=== PATIENT | female | born 1975 | race Caucasian/White ===

== ENCOUNTER → 2018-03-06 14:02 | Outpatient (CLI) | payer OTHER, SELFPAY ==
[2018-03-06 15:46] LABS: TSH w/ Reflex to FT4 2.18 uIU/mL (0.47-4.68)
== END ==
PROVIDERS: Family Provider Family Medicine; PCP Family Medicine; Visit Provider Family Medicine
DX: E03.9 Hypothyroidism, unspecified (principal)
CPT/HCPCS: 36415; 84443

== ENCOUNTER → 2018-03-18 10:30 | Outpatient (CLI) | payer OTHER, SELFPAY ==
--- NOTE | 2018-03-18 | DI.MG.S_ITS ---
BILATERAL DIGITAL SCREENING MAMMOGRAM 3D/2D WITH CAD: 03/18/2018 CLINICAL: Routine screening. Family history of breast cancer. Comparison is made to exams dated: 12/22/2016 mammogram, 12/10/2015 mammogram, and 12/22/2015 mammogram - [facility]. The tissue of both breasts is heterogeneously dense. This may lower the sensitivity of mammography. Current study was also evaluated with a Computer Aided Detection (CAD) system. No significant masses, calcifications, or other findings are seen in either breast. There has been no significant interval change. IMPRESSION: NEGATIVE There is no mammographic evidence of malignancy. A 1 year screening mammogram is recommended. This exam was interpreted at Station ID: [id number]. NOTE: For mammograms, a report in lay terms will be sent to the patient. Approximately 15% of breast malignancies will not be visualized mammographically. In the management of a palpable breast mass, a negative mammogram must not discourage biopsy of a clinically suspicious lesion. Electronically Signed By: Christine montalvo/bret:03/18/2018 11:18:59 letter sent: Normal Exam ACR BI-RADS Category 1: Negative 3341F
== END ==
PROVIDERS: Family Provider Family Medicine; PCP Family Medicine; Visit Provider Family Medicine
DX: Z12.31 Encounter for screening mammogram for malignant neoplasm of breast (principal); Z80.3 Family history of malignant neoplasm of breast
CPT/HCPCS: 77063; 77067

== ENCOUNTER → 2019-01-16 09:48 | Outpatient (CLI) | payer OTHER, SELFPAY ==
[2019-01-16 11:24] LABS: Add Manual Diff / Slide Review NO; Basophils Absolute Auto 0 /uL (0-100); Basophils Percent Auto 0.8 % (0-2); Eosinophils Absolute Auto 200 /uL (0-450); Eosinophils Percent Auto 2.7 % (2-4); Hematocrit 42.3 % (36-46); Hemoglobin 14.3 g/dL (12.0-16.0); Lymphocytes Absolute Auto 1400 /uL (1100-4500); Lymphocytes Percent Auto 23.6 % (25-40); Mean Corpuscular HGB Conc 33.9 % (30-36); Mean Corpuscular Hemoglobin 30.2 PG (26-34); Mean Corpuscular Volume 89.2 fL (80-100); Monocytes Absolute Auto 600 /uL (0-900); Monocytes Percent Auto 9.4 % (3-14); Neutrophils Absolute Auto 3800 /uL (1500-7000); Neutrophils Percent Auto 63.5 % (50-75); Platelet Count 319 X10^3/uL (150-400); Red Blood Cell Count 4.74 X10^6/uL (4.0-5.2); Red Cell Distribution Width 12.7 % (11.6-14.8); White Blood Cell Count 5.9 X10^3/uL (4.5-11.0)
[2019-01-16 11:28] LABS: Alanine Aminotransferase 20 IU/L (9-52); Albumin 4.3 g/dL (3.5-5.0); Albumin Globulin Ratio 1.4 (1.0-2.8); Alkaline Phosphatase 47 U/L (38-126); Aspartate Aminotransferase 23 IU/L (14-36); Bilirubin Total 0.4 mg/dL (0.2-1.3); Blood Urea Nitrogen 15 mg/dL (7-17); Calcium 9.2 mg/dL (8.4-10.2); Carbon Dioxide 25 mmol/L (22-32); Chloride 104 mmol/L (98-107); Estimated Glomerular Filt Rate > 60.0 mL/min (>60); Globulin 3.1 g/dL (1.7-4.1); Glucose 123 mg/dL (70-100); HEMOLYSIS 16 (0-50); Potassium 4.3 mmol/L (3.4-5.1); Sodium 138 mmol/L (137-145); Total Protein 7.4 g/dL (6.3-8.2)
[2019-01-16 11:55] LABS: Follicle Stimulating Hormone 2.05 mIU/mL
[2019-01-16 12:08] LABS: TSH w/ Reflex to FT4 2.57 uIU/mL (0.47-4.68)
== END ==
PROVIDERS: PCP Family Medicine; Visit Provider Family Medicine
DX: N95.1 Menopausal and female climacteric states (principal); R53.83 Other fatigue
CPT/HCPCS: 36415; 80053; 83001; 84443; 85025

== ENCOUNTER → 2019-04-01 11:20 | Outpatient (CLI) | payer OTHER, SELFPAY ==
--- NOTE | 2019-04-01 11:22 | DI.MG.S_ITS ---
BILATERAL DIGITAL SCREENING MAMMOGRAM 3D/2D WITH CAD: 04/01/2019 CLINICAL: Routine screening. Family history of breast cancer. Comparison is made to exams dated: 03/18/2018 mammogram, 12/22/2016 mammogram, and 12/22/2015 mammogram - [facility]. The tissue of both breasts is heterogeneously dense. This may lower the sensitivity of mammography. Current study was also evaluated with a Computer Aided Detection (CAD) system. No significant masses, calcifications, or other findings are seen in either breast. There has been no significant interval change. IMPRESSION: NEGATIVE There is no mammographic evidence of malignancy. A 1 year screening mammogram is recommended. This exam was interpreted at Station ID: [id number]. NOTE: For mammograms, a report in lay terms will be sent to the patient. Approximately 15% of breast malignancies will not be visualized mammographically. In the management of a palpable breast mass, a negative mammogram must not discourage biopsy of a clinically suspicious lesion. Electronically Signed By: Alise wolfe/bret:04/01/2019 16:13:23 letter sent: Normal Exam ACR BI-RADS Category 1: Negative 3341F
== END ==
PROVIDERS: PCP Family Medicine; Visit Provider Family Medicine
DX: Z12.31 Encounter for screening mammogram for malignant neoplasm of breast (principal); Z80.3 Family history of malignant neoplasm of breast
CPT/HCPCS: 77063; 77067

== ENCOUNTER → 2020-04-05 08:15 | Outpatient (CLI) | payer OTHER, SELFPAY ==
--- NOTE | 2020-04-05 08:56 | DI.MG.S_ITS ---
BILATERAL DIGITAL SCREENING MAMMOGRAM 3D/2D WITH CAD: 04/05/2020 CLINICAL: Routine screening. Family history of breast cancer. Comparison is made to exams dated: 04/01/2019 mammogram, 03/18/2018 mammogram, and 12/22/2016 mammogram - [facility]. The tissue of both breasts is heterogeneously dense. This may lower the sensitivity of mammography. Current study was also evaluated with a Computer Aided Detection (CAD) system. No significant masses, calcifications, or other findings are seen in either breast. There has been no significant interval change. IMPRESSION: NEGATIVE There is no mammographic evidence of malignancy. A 1 year screening mammogram is recommended. This exam was interpreted at Station ID: [id number]. NOTE: For mammograms, a report in lay terms will be sent to the patient. Approximately 15% of breast malignancies will not be visualized mammographically. In the management of a palpable breast mass, a negative mammogram must not discourage biopsy of a clinically suspicious lesion. Electronically Signed By: Ariel khalil/bret:04/05/2020 09:20:20 letter sent: Normal Exam ACR BI-RADS Category 1: Negative 3341F
== END ==
PROVIDERS: PCP Family Medicine; Referring Provider Family Medicine; Visit Provider Family Medicine
DX: Z12.31 Encounter for screening mammogram for malignant neoplasm of breast (principal)
CPT/HCPCS: 77063; 77067

== ENCOUNTER → 2020-04-13 07:06 | Outpatient (CLI) | payer OTHER, SELFPAY ==
[2020-04-13 08:16] LABS: Alanine Aminotransferase 21 IU/L (<35); Albumin 4.1 g/dL (3.5-5.0); Albumin Globulin Ratio 1.4 (1.0-2.8); Alkaline Phosphatase 47 U/L (38-126); Aspartate Aminotransferase 29 IU/L (14-36); BUN Creatinine Ratio 18.8 (6-22); Bilirubin Total 0.6 mg/dL (0.2-1.3); Blood Urea Nitrogen 13 mg/dL (7-17); Calcium 8.6 mg/dL (8.4-10.2); Carbon Dioxide 28 mmol/L (22-32); Chloride 105 mmol/L (98-107); Estimated Glomerular Filt Rate > 60.0 mL/min (>60); Globulin 2.9 g/dL (1.7-4.1); Glucose 97 mg/dL (70-100); HEMOLYSIS < 15 (0-50); Potassium 4.4 mmol/L (3.4-5.1); Sodium 136 mmol/L (137-145)
[2020-04-13 08:47] LABS: TSH w/ Reflex to FT4 5.93 uIU/mL (0.47-4.68)
[2020-04-13 09:16] LABS: Free T4, Direct Thyroxine 0.94 ng/dL (0.78-2.19)
== END ==
PROVIDERS: PCP Family Medicine; Referring Provider Family Medicine; Visit Provider Family Medicine
DX: E03.9 Hypothyroidism, unspecified (principal); R73.9 Hyperglycemia, unspecified
CPT/HCPCS: 36415; 80053; 84439; 84443

== ENCOUNTER → 2020-06-24 09:08 | Outpatient (CLI) | payer OTHER, SELFPAY ==
[2020-06-24 10:29] LABS: Thyroid Stimulating Hormone 2.57 uIU/mL (0.47-4.68)
[2020-06-25 11:36] LABS: SARS-CoV19- IgM Negative (Negative)
[2020-06-29 10:01] LABS: SARS CoV19 IgG Negative
== END ==
PROVIDERS: PCP Family Medicine; Referring Provider Family Medicine; Visit Provider Family Medicine
DX: R06.02 Shortness of breath (principal); E03.9 Hypothyroidism, unspecified; Z20.822 Contact with and (suspected) exposure to COVID-19
CPT/HCPCS: 36415; 84443; 86769

== ENCOUNTER → 2021-04-15 08:26 | Outpatient (CLI) | payer BC, SELFPAY ==
--- NOTE | 2021-04-15 | DI.MG.S_ITS ---
BILATERAL DIGITAL SCREENING MAMMOGRAM 3D/2D WITH CAD: 04/15/2021 CLINICAL: Routine screening. Comparison is made to exams dated: 04/05/2020 mammogram, 04/01/2019 mammogram, and 03/18/2018 mammogram - [facility]. The tissue of both breasts is heterogeneously dense. This may lower the sensitivity of mammography. Current study was also evaluated with a Computer Aided Detection (CAD) system. No significant masses, calcifications, or other findings are seen in either breast. There has been no significant interval change. IMPRESSION: NEGATIVE There is no mammographic evidence of malignancy. A 1 year screening mammogram is recommended. This exam was interpreted at Station ID: [id number]. NOTE: For mammograms, a report in lay terms will be sent to the patient. Approximately 15% of breast malignancies will not be visualized mammographically. In the management of a palpable breast mass, a negative mammogram must not discourage biopsy of a clinically suspicious lesion. Electronically Signed By: Alise wolfe/bret:04/15/2021 15:09:26 letter sent: Normal Exam ACR BI-RADS Category 1: Negative 3341F
== END ==
PROVIDERS: PCP Family Medicine; Referring Provider Family Medicine; Visit Provider Family Medicine
DX: Z12.31 Encounter for screening mammogram for malignant neoplasm of breast (principal)
CPT/HCPCS: 77063; 77067

== ENCOUNTER → 2021-08-01 09:05 | Outpatient (CLI) | payer BC, SELFPAY ==
[2021-08-01 09:58] LABS: Alanine Aminotransferase 13 IU/L (<35); Albumin 4.7 g/dL (3.5-5.0); Albumin Globulin Ratio 1.5 (1.0-2.8); Alkaline Phosphatase 45 U/L (38-126); Aspartate Aminotransferase 23 IU/L (14-36); BUN Creatinine Ratio 21.1 (6-22); Bilirubin Total 0.6 mg/dL (0.2-1.3); Blood Urea Nitrogen 16 mg/dL (7-17); Calcium 9.1 mg/dL (8.4-10.2); Carbon Dioxide 28 mmol/L (22-32); Chloride 105 mmol/L (98-107); Cholesterol 192 mg/dL (140-199); Estimated Glomerular Filt Rate > 60.0 mL/min (>60); Globulin 3.2 g/dL (1.7-4.1); Glucose 102 mg/dL (70-100); HDL Cholesterol 57 mg/dL (40-60); HEMOLYSIS < 15 (0-50); LDL Cholesterol Calculated 123 mg/dL (<100); Potassium 4.7 mmol/L (3.4-5.1); Sodium 138 mmol/L (137-145); Total Protein 7.9 g/dL (6.3-8.2); Triglycerides 60 mg/dL (35-150)
[2021-08-01 10:12] LABS: Erythrocyte Sedimentation Rate 6 MM/HR (0-20)
[2021-08-01 10:31] LABS: Vitamin D 25 Hydroxy (D3) 25.8 ng/mL (30.0-100.0)
[2021-08-01 10:48] LABS: TSH w/ Reflex to FT4 3.38 uIU/mL (0.47-4.68)
== END ==
PROVIDERS: PCP Family Medicine; Referring Provider Family Medicine; Visit Provider Family Medicine
DX: M79.10 Myalgia, unspecified site (principal); Z13.220 Encounter for screening for lipoid disorders; E03.9 Hypothyroidism, unspecified; E55.9 Vitamin D deficiency, unspecified
CPT/HCPCS: 36415; 80053; 80061; 82306; 84443; 85651

== ENCOUNTER 2021-09-26 09:00 | Outpatient (RCR) | payer BC, SELFPAY ==
--- NOTE | 2021-08-22 15:50 | PT.OIE ---
Current Diagnoses Pain in right knee (08/22/21) Radiculopathy, lumbar region (08/22/21) Past Medical History (Last Reviewed 08/01/21 @ 09:35 by Joelle Keita DO) Abnormal Pap smear of cervix (~1998) History of elbow surgery History of shoulder surgery Hypothyroidism S/P tonsillectomy Vaginal delivery Past Surgical History (Last Reviewed 08/01/21 @ 09:35 by Joelle Keita DO) Anesthesia History of elbow surgery History of shoulder surgery S/P tonsillectomy Visit Care Team Role Provider Type Joelle Keita DO Attending Provider Physician Family Provider Primary Care Provider Referring Provider Specialty: Family Practice Address: [address] [place] [address], [facility] Email: [email or web address] Physical Therapy Initial Evaluation PT-OP-A Visit Information Start: 08/22/21 09:46 Freq: Status: Active Protocol: Document 08/22/21 09:45 AMB (Rec: 08/23/21 09:34 AMB [id number]) Out-Patient Physical Therapy Visit Information Visit Information Visit Type Initial Evaluation Visit Start Time 09:45 Visit Stop Time 10:30 Total Visit Minutes 45 Visit Number 1 PT-OP-B Current Condition Start: 08/22/21 09:46 Freq: Status: Active Protocol: Document 08/22/21 09:46 AMB (Rec: 08/22/21 10:00 AMB [id number]) Current Condition History of Current Condition Onset Date June 2021 Current Complaints R knee/ proximal History of Current Condition The end of June hiking. R knee hyperextended while hiking- bouldering. Lots of walking afterwards and the knee has been sore ever since. Twisting the knee hurts. Feels like the knee is swollen . Was previously taking ibuprofen. Did go mountain biking yesterday and was sore but is ok. Usually walks 2 miles up hill and downhill, but hasn't been doing that as much. Does have a little bit of back history but feeling better since seeing the chiropractor beginning of June- was having bilateral pain going down the legs when waking up but that has also recently resolved. Stairs were a problem but now that is feeling better. Treatment Goals Patient/Caregiver Goals Be able to walk on uneven ground/up down hills without knee pain, be able to bend knee fully Personal Factors Other Personal Factors That May Effect hypothyroid, history of Therapy/Recovery bilateral leg pain associated with back pain that has seemingly resolved. PT-OP-C Subjective Start: 08/22/21 09:46 Freq: Status: Active Protocol: Document 08/22/21 09:45 AMB (Rec: 08/23/21 09:34 AMB [id number]) Patient Questionnaires Oswestry Low Back Index Oswestry Score 10 Oswestry Impairment 1 to 19% Impaired (Score 1-19) PT-OP-J Posture/Palpation/Skin Start: 08/22/21 09:46 Freq: Status: Active Protocol: Document 08/22/21 09:45 AMB (Rec: 08/23/21 09:44 AMB [id number]) Skin Assessment Circumference Measurement 1 Location L knee Measurement (Centimeters) 130 knees Location R knee Measurement (Centimeters) 115 PT-OP-K Range of Motion Start: 08/22/21 09:46 Freq: Status: Active Protocol: Document 08/22/21 09:45 AMB (Rec: 08/23/21 09:34 AMB [id number]) Knee Goniometric Range of Motion Knee Right Flexion Active (degrees) 115 Extension Active (degrees) 7 Left Flexion Active (degrees) 130 Extension Active (degrees) 5 PT-OP-L Special Tests Start: 08/22/21 09:46 Freq: Status: Active Protocol: Document 08/22/21 09:45 AMB (Rec: 08/23/21 09:34 AMB [id number]) Special Tests Knee Special Tests Allen Test Test Results - Patellar Grind Test Test Results - Anterior Draw Test Results - Posterior Draw Test Results - PT-OP-M Strength Start: 08/22/21 09:46 Freq: Status: Active Protocol: Document 08/22/21 09:45 AMB (Rec: 08/23/21 09:34 AMB [id number]) Knee Strength Knee Manual Muscle Testing Right Flexion (S2) 4+ Good+ Extension (L3) 4+ Good+ Left Flexion (S2) 5 Normal Extension (L3) 5 Normal Ankle/Foot Strength Ankle and Foot Manual Muscle Testing Right Dorsiflexion (L4) 5 Normal Left Dorsiflexion (L4) 5 Normal PT-OP-Q Treatments Start: 08/22/21 09:46 Freq: Status: Active Protocol: Document 08/22/21 09:45 AMB (Rec: 08/23/21 09:34 AMB [id number]) Therapeutic Exercises Supine Exercises SLR Reps/Minutes 10 Other Exercises gustavo pose Reps/Minutes 30x2 PT-OP-T Assessment and Plan Start: 08/22/21 09:46 Freq: Status: Active Protocol: Document 08/22/21 09:45 AMB (Rec: 08/23/21 13:01 AMB [id number]) Physical Therapy Assessment Rehab Potential Rehabilitation Potential Good Evaluation Complexity Number of Personal Factors/Comorbidities 1-2 Number of Body Systems Impaired 4 or More Clinical Presentation at Evaluation Evolving Impairments Impairments Edema,Pain,ROM,Strength Goals Two Impairment pain Short Term Goal (STG) Carlene will walk 3 miles with elevation gain without LE pain. STG Duration 4 weeks Fdc Goal (LTG) Carlene will perform a full squat with good body mechanics without knee pain. LTG Duration 8 weeks One Impairment ROM Short Term Goal (STG) Carlene will increase her knee flexion to 130 degrees. STG Duration 4 weeks Assessment Summary Assessment Carlene attends physical therapy concerned about her right knee which she injured hiking in June. She does report history of back pain and bilateral leg sx, which she states were resolved with career specialist prior to her hiking injury. She did see her physician for her knee recently who felt it was a symptom of radicular pain from her back. At PT eval, however her knee is swollen and has quite restricted ROM into flexion. Testing was negative for ACL, PCL meniscus involvement and pain/swelling is mostly located superior and medial to the patella. Carlene will benefit from physical therapy to improve her range of motion, hip and core stability, and improve her gait/mobility so she can return to exercise without pain. Physical Therapy Plan Frequency and Duration Frequency of Treatment 2x/Week Duration of Treatment 8 weeks Plan of Care Start Date 08/22/21 Plan of Care End Date 10/17/21 Therapeutic Interventions Therapeutic Interventions Gait Training,Joint Mobilizations,Manual Therapy, Neuromuscular Re-education, Therapeutic Activities, Therapeutic Exercises Modalities Cold Pack/Ice Massage,Electric Stimulation,Hot Packs Next Visit Focus/Plan Next Note Type Treatment Note Next Visit Plan follow up on preliminary HEP: gustavo pose, SLR,
--- NOTE | 2021-08-22 15:51 | PT.OPPOC ---
Physical, Occupational & Speech Therapy At [facility] Current Diagnoses Pain in right knee (08/22/21) Radiculopathy, lumbar region (08/22/21) Visit Care Team Role Provider Type Joelle Keita DO Attending Provider Physician Family Provider Primary Care Provider Referring Provider Specialty: Family Practice Address: [address] [place] [address], [place], [place], [facility] Email: [email or web address] Plan Of Care PT-OP-T Assessment and Plan Start: 08/22/21 09:46 Freq: Status: Active Protocol: Document 08/22/21 09:45 AMB (Rec: 08/23/21 13:01 AMB [id number]) Physical Therapy Assessment Rehab Potential Rehabilitation Potential Good Evaluation Complexity Number of Personal Factors/Comorbidities 1-2 Number of Body Systems Impaired 4 or More Clinical Presentation at Evaluation Evolving Impairments Impairments Edema,Pain,ROM,Strength Goals Two Impairment pain Short Term Goal (STG) Carlene will walk 3 miles with elevation gain without LE pain. STG Duration 4 weeks Senior Care Goal (LTG) Carlene will perform a full squat with good body mechanics without knee pain. LTG Duration 8 weeks One Impairment ROM Short Term Goal (STG) Carlene will increase her knee flexion to 130 degrees. STG Duration 4 weeks Assessment Summary Assessment Carlene attends physical therapy concerned about her right knee which she injured hiking in June. She does report history of back pain and bilateral leg sx, which she states were resolved with skin care technician prior to her hiking injury. She did see her physician for her knee recently who felt it was a symptom of radicular pain from her back. At PT eval, however her knee is swollen and has quite restricted ROM into flexion. Testing was negative for ACL, PCL meniscus involvement and pain/swelling is mostly located superior and medial to the patella. Carlene will benefit from physical therapy to improve her range of motion, hip and core stability, and improve her gait/mobility so she can return to exercise without pain. Physical Therapy Plan Frequency and Duration Frequency of Treatment 2x/Week Duration of Treatment 8 weeks Plan of Care Start Date 08/22/21 Plan of Care End Date 10/17/21 Therapeutic Interventions Therapeutic Interventions Gait Training,Joint Mobilizations,Manual Therapy, Neuromuscular Re-education, Therapeutic Activities, Therapeutic Exercises Modalities Cold Pack/Ice Massage,Electric Stimulation,Hot Packs Next Visit Focus/Plan Next Note Type Treatment Note Next Visit Plan follow up on preliminary HEP: gustavo pose, LEBRONR, Plan of Care Dates Plan of Care Start Date 08/22/21 Plan of Care End Date 10/17/21 Electronically Signed by: Rima Treadwell, PT 08/23/21 [id number] Please Sign and Return: I have reviewed this Plan of Care and certify that the skilled therapy services above are required to meet the patient?s needs. Physician Signature Date Printed Name and Credentials Clinical Instructor Signature Printed Name and Credentials
--- NOTE | 2021-08-24 10:55 | PT.OTN ---
Current Diagnoses Pain in right knee (08/24/21) Radiculopathy, lumbar region (08/24/21) Physical Therapy Treatment Note PT-OP-A Visit Information Start: 08/22/21 09:46 Freq: Status: Active Protocol: Document 08/24/21 09:48 AMB (Rec: 08/24/21 10:49 AMB [id number]) Out-Patient Physical Therapy Visit Information Visit Information Visit Type Treatment Note Visit Start Time 09:45 Visit Stop Time 10:30 Total Visit Minutes 45 Visit Number 2 PT-OP-B Current Condition Start: 08/22/21 09:46 Freq: Status: Active Protocol: Document 08/22/21 09:46 AMB (Rec: 08/22/21 10:00 AMB [id number]) Current Condition History of Current Condition Onset Date June 2021 Current Complaints R knee/ proximal History of Current Condition The end of June hiking. R knee hyperextended while hiking- bouldering. Lots of walking afterwards and the knee has been sore ever since. Twisting the knee hurts. Feels like the knee is swollen . Was previously taking ibuprofen. Did go mountain biking yesterday and was sore but is ok. Usually walks 2 miles up hill and downhill, but hasn't been doing that as much. Does have a little bit of back history but feeling better since seeing the chiropractor beginning of June- was having bilateral pain going down the legs when waking up but that has also recently resolved. Stairs were a problem but now that is feeling better. Treatment Goals Patient/Caregiver Goals Be able to walk on uneven ground/up down hills without knee pain, be able to bend knee fully Personal Factors Other Personal Factors That May Effect hypothyroid, history of Therapy/Recovery bilateral leg pain associated with back pain that has seemingly resolved. PT-OP-C Subjective Start: 08/22/21 09:46 Freq: Status: Active Protocol: Document 08/24/21 09:48 AMB (Rec: 08/24/21 10:49 AMB [id number]) OP-PT Subjective Patient Comments Patient Comments Pt reports increased pain in the evening after walking 2 miles with hills, felt ok when walking though. PT-OP-J Posture/Palpation/Skin Start: 08/22/21 09:46 Freq: Status: Active Protocol: Document 08/22/21 09:45 AMB (Rec: 08/23/21 09:44 AMB [id number]) Skin Assessment Circumference Measurement 1 Location L knee Measurement (Centimeters) 130 knees Location R knee Measurement (Centimeters) 115 PT-OP-K Range of Motion Start: 08/22/21 09:46 Freq: Status: Active Protocol: Document 08/22/21 09:45 AMB (Rec: 08/23/21 09:34 AMB [id number]) Knee Goniometric Range of Motion Knee Right Flexion Active (degrees) 115 Extension Active (degrees) 7 Left Flexion Active (degrees) 130 Extension Active (degrees) 5 PT-OP-L Special Tests Start: 08/22/21 09:46 Freq: Status: Active Protocol: Document 08/22/21 09:45 AMB (Rec: 08/23/21 09:34 AMB [id number]) Special Tests Knee Special Tests Allen Test Test Results - Patellar Grind Test Test Results - Anterior Draw Test Results - Posterior Draw Test Results - PT-OP-M Strength Start: 08/22/21 09:46 Freq: Status: Active Protocol: Document 08/22/21 09:45 AMB (Rec: 08/23/21 09:34 AMB [id number]) Knee Strength Knee Manual Muscle Testing Right Flexion (S2) 4+ Good+ Extension (L3) 4+ Good+ Left Flexion (S2) 5 Normal Extension (L3) 5 Normal Ankle/Foot Strength Ankle and Foot Manual Muscle Testing Right Dorsiflexion (L4) 5 Normal Left Dorsiflexion (L4) 5 Normal PT-OP-Q Treatments Start: 08/22/21 09:46 Freq: Status: Active Protocol: Document 08/24/21 09:48 AMB (Rec: 08/24/21 10:49 AMB [id number]) Cardio Equipment Recumbent Bicycle Duration (Minutes) 5 Resistance 4 Seat Position 6 Gym Equipment Shuttle Recovery Bilateral Squats Resistance 50 Shuttle Recovery Platform Stable Reps/Time 3x10 Therapeutic Exercises Supine Exercises hamstring stretches Reps/Minutes 10 SLR Reps/Minutes 10 Manual Therapy Treatment Soft Tissue Mobilization 1 Body Location superior quad Mobilization Type Myofascial Release Intensity/Depth Moderate Body Position Hooklying Joint Mobilizations 1 Joint tibiofemoral Direction PA Grade III Body Position Hooklying Comments into flexion PT-OP-T Assessment and Plan Start: 08/22/21 09:46 Freq: Status: Active Protocol: Document 08/24/21 09:48 JUANIS (Rec: 08/24/21 10:49 [facility] [id number]) Physical Therapy Assessment Goals Two Impairment pain Short Term Goal (STG) Carlene will walk 3 miles with elevation gain without LE pain. STG Duration 4 weeks Client Resolution Specialist Goal (LTG) Carlene will perform a full squat with good body mechanics without knee pain. LTG Duration 8 weeks One Impairment ROM Short Term Goal (STG) Carlene will increase her knee flexion to 130 degrees. STG Duration 4 weeks Assessment Summary Assessment Carlene tolerated biking and shuttle recovery well. Got up to 130 degrees of flexion today, significant improvement since eval, but will need to strengthen extensively to work up to backpacking trip in November.
--- NOTE | 2021-08-29 15:48 | PT.OTN ---
Current Diagnoses Pain in right knee (08/29/21) Radiculopathy, lumbar region (08/29/21) Physical Therapy Treatment Note PT-OP-A Visit Information Start: 08/22/21 09:46 Freq: Status: Active Protocol: Document 08/29/21 09:00 AMB (Rec: 08/29/21 09:44 AMB [id number]) Out-Patient Physical Therapy Visit Information Visit Information Visit Type Treatment Note Visit Start Time 09:00 Visit Stop Time 09:40 Total Visit Minutes 40 Visit Number 3 PT-OP-B Current Condition Start: 08/22/21 09:46 Freq: Status: Active Protocol: Document 08/22/21 09:46 AMB (Rec: 08/22/21 10:00 AMB [id number]) Current Condition History of Current Condition Onset Date June 2021 Current Complaints R knee/ proximal History of Current Condition The end of June hiking. R knee hyperextended while hiking- bouldering. Lots of walking afterwards and the knee has been sore ever since. Twisting the knee hurts. Feels like the knee is swollen . Was previously taking ibuprofen. Did go mountain biking yesterday and was sore but is ok. Usually walks 2 miles up hill and downhill, but hasn't been doing that as much. Does have a little bit of back history but feeling better since seeing the chiropractor beginning of June- was having bilateral pain going down the legs when waking up but that has also recently resolved. Stairs were a problem but now that is feeling better. Treatment Goals Patient/Caregiver Goals Be able to walk on uneven ground/up down hills without knee pain, be able to bend knee fully Personal Factors Other Personal Factors That May Effect hypothyroid, history of Therapy/Recovery bilateral leg pain associated with back pain that has seemingly resolved. PT-OP-C Subjective Start: 08/22/21 09:46 Freq: Status: Active Protocol: Document 08/29/21 09:00 AMB (Rec: 08/29/21 15:39 AMB [id number]) OP-PT Subjective Patient Comments Patient Comments Pt went on a bike ride on Sunday and had to walk her bike a bit and was a bit sore due to that. PT-OP-J Posture/Palpation/Skin Start: 08/22/21 09:46 Freq: Status: Active Protocol: Document 08/22/21 09:45 AMB (Rec: 08/23/21 09:44 AMB [id number]) Skin Assessment Circumference Measurement 1 Location L knee Measurement (Centimeters) 130 knees Location R knee Measurement (Centimeters) 115 PT-OP-K Range of Motion Start: 08/22/21 09:46 Freq: Status: Active Protocol: Document 08/22/21 09:45 AMB (Rec: 08/23/21 09:34 AMB [id number]) Knee Goniometric Range of Motion Knee Right Flexion Active (degrees) 115 Extension Active (degrees) 7 Left Flexion Active (degrees) 130 Extension Active (degrees) 5 PT-OP-L Special Tests Start: 08/22/21 09:46 Freq: Status: Active Protocol: Document 08/22/21 09:45 AMB (Rec: 08/23/21 09:34 AMB [id number]) Special Tests Knee Special Tests Allen Test Test Results - Patellar Grind Test Test Results - Anterior Draw Test Results - Posterior Draw Test Results - PT-OP-M Strength Start: 08/22/21 09:46 Freq: Status: Active Protocol: Document 08/22/21 09:45 AMB (Rec: 08/23/21 09:34 AMB [id number]) Knee Strength Knee Manual Muscle Testing Right Flexion (S2) 4+ Good+ Extension (L3) 4+ Good+ Left Flexion (S2) 5 Normal Extension (L3) 5 Normal Ankle/Foot Strength Ankle and Foot Manual Muscle Testing Right Dorsiflexion (L4) 5 Normal Left Dorsiflexion (L4) 5 Normal PT-OP-Q Treatments Start: 08/22/21 09:46 Freq: Status: Active Protocol: Document 08/29/21 09:00 AMB (Rec: 08/29/21 09:44 AMB [id number]) Cardio Equipment Bicycle (Upright) Duration (Minutes) 6 Resistance 10 Seat Position 5 Gym Equipment Shuttle Recovery Unilateral Squats Resistance 37 Shuttle Recovery Platform Stable Reps/Time 2x10 Bilateral Squats Resistance 50 Shuttle Recovery Platform Stable Reps/Time 3x10 Therapeutic Exercises Supine Exercises IT band stretch Reps/Minutes 30x2 bridge Reps/Minutes 2x10 SLR Reps/Minutes 10 Manual Therapy Treatment Soft Tissue Mobilization 1 Body Location superior quad Mobilization Type Myofascial Release Intensity/Depth Moderate Body Position Hooklying Taping Kinesiotape Body Location R Knee Type of Tape Kinesio Tape Comments 2 I strips from tibial around patella to femur PT-OP-T Assessment and Plan Start: 08/22/21 09:46 Freq: Status: Active Protocol: Document 08/29/21 09:00 AMB (Rec: 08/29/21 14:32 AMB [id number]) Physical Therapy Assessment Goals Two Impairment pain Short Term Goal (STG) Carlene will walk 3 miles with elevation gain without LE pain. STG Duration 4 weeks Jewish Thought Professor Goal (LTG) Carlene will perform a full squat with good body mechanics without knee pain. LTG Duration 8 weeks One Impairment ROM Short Term Goal (STG) Carlene will increase her knee flexion to 130 degrees. STG Duration 4 weeks Assessment Summary Assessment Carlene is showing a good improvement in her knee flexion. Pain was more lateral today, so did encourage in IT band stretching/rolling. Physical Therapy Plan Next Visit Focus/Plan Next Note Type Treatment Note Next Visit Plan HEP: gustavo pose, SLR, IT band stretch, bridge
--- NOTE | 2021-09-08 11:15 | PT.OTN ---
Current Diagnoses Pain in right knee (09/08/21) Radiculopathy, lumbar region (09/08/21) Physical Therapy Treatment Note PT-OP-A Visit Information Start: 08/22/21 09:46 Freq: Status: Active Protocol: Document 09/08/21 09:01 AMB (Rec: 09/08/21 09:52 AMB [id number]) Out-Patient Physical Therapy Visit Information Visit Information Visit Type Treatment Note Visit Start Time 09:00 Visit Stop Time 09:45 Total Visit Minutes 45 Visit Number 4 PT-OP-B Current Condition Start: 08/22/21 09:46 Freq: Status: Active Protocol: Document 08/22/21 09:46 AMB (Rec: 08/22/21 10:00 AMB [id number]) Current Condition History of Current Condition Onset Date June 2021 Current Complaints R knee/ proximal History of Current Condition The end of June hiking. R knee hyperextended while hiking- bouldering. Lots of walking afterwards and the knee has been sore ever since. Twisting the knee hurts. Feels like the knee is swollen . Was previously taking ibuprofen. Did go mountain biking yesterday and was sore but is ok. Usually walks 2 miles up hill and downhill, but hasn't been doing that as much. Does have a little bit of back history but feeling better since seeing the chiropractor beginning of June- was having bilateral pain going down the legs when waking up but that has also recently resolved. Stairs were a problem but now that is feeling better. Treatment Goals Patient/Caregiver Goals Be able to walk on uneven ground/up down hills without knee pain, be able to bend knee fully Personal Factors Other Personal Factors That May Effect hypothyroid, history of Therapy/Recovery bilateral leg pain associated with back pain that has seemingly resolved. PT-OP-C Subjective Start: 08/22/21 09:46 Freq: Status: Active Protocol: Document 09/08/21 09:55 AMB (Rec: 09/08/21 11:14 AMB [id number]) OP-PT Subjective Patient Comments Patient Comments Pt returns with less quad pain , but some discomfort over bilateral patellas, did ref a [employer] soccer game with some running and cutting and knee was pretty painful after that. PT-OP-J Posture/Palpation/Skin Start: 08/22/21 09:46 Freq: Status: Active Protocol: Document 08/22/21 09:45 AMB (Rec: 08/23/21 09:44 AMB [id number]) Skin Assessment Circumference Measurement 1 Location L knee Measurement (Centimeters) 130 knees Location R knee Measurement (Centimeters) 115 PT-OP-K Range of Motion Start: 08/22/21 09:46 Freq: Status: Active Protocol: Document 08/22/21 09:45 AMB (Rec: 08/23/21 09:34 AMB [id number]) Knee Goniometric Range of Motion Knee Right Flexion Active (degrees) 115 Extension Active (degrees) 7 Left Flexion Active (degrees) 130 Extension Active (degrees) 5 PT-OP-L Special Tests Start: 08/22/21 09:46 Freq: Status: Active Protocol: Document 08/22/21 09:45 AMB (Rec: 08/23/21 09:34 AMB [id number]) Special Tests Knee Special Tests Allen Test Test Results - Patellar Grind Test Test Results - Anterior Draw Test Results - Posterior Draw Test Results - PT-OP-M Strength Start: 08/22/21 09:46 Freq: Status: Active Protocol: Document 08/22/21 09:45 AMB (Rec: 08/23/21 09:34 AMB [id number]) Knee Strength Knee Manual Muscle Testing Right Flexion (S2) 4+ Good+ Extension (L3) 4+ Good+ Left Flexion (S2) 5 Normal Extension (L3) 5 Normal Ankle/Foot Strength Ankle and Foot Manual Muscle Testing Right Dorsiflexion (L4) 5 Normal Left Dorsiflexion (L4) 5 Normal PT-OP-Q Treatments Start: 08/22/21 09:46 Freq: Status: Active Protocol: Document 09/08/21 09:55 AMB (Rec: 09/08/21 11:14 AMB [id number]) Therapeutic Exercises Standing Exercises 5 Standing Exercise Name fwd step ups Reps/Minutes 10 4 Standing Exercise Name knee flexion stretch on stair 3 Standing Exercise Name squats Reps/Minutes partial- cued knee toe hip alignment 2 Standing Exercise Name lateral lunges- partial Reps/Minutes 2x10 1 Standing Exercise Name fwd lunges Reps/Minutes 2x10 Comments cued form Manual Therapy Treatment Joint Mobilizations 1 Joint tibiofemoral Direction PA Grade III Body Position Hooklying Comments into flexion PT-OP-T Assessment and Plan Start: 08/22/21 09:46 Freq: Status: Active Protocol: Document 09/08/21 09:55 AMB (Rec: 09/08/21 11:14 AMB [id number]) Physical Therapy Assessment Goals Two Impairment pain Short Term Goal (STG) Carlene will walk 3 miles with elevation gain without LE pain. STG Duration 4 weeks Vegetable Grower Goal (LTG) Carlene will perform a full squat with good body mechanics without knee pain. LTG Duration 8 weeks One Impairment ROM Short Term Goal (STG) Carlene will increase her knee flexion to 130 degrees. STG Duration 4 weeks Assessment Summary Assessment Carlene's flexion improved to 135 today, does have tightness at that point. Good work with form today. Physical Therapy Plan Next Visit Focus/Plan Next Visit Plan HEP: lunges, forward and lateral
--- NOTE | 2021-09-12 10:37 | PT.OTN ---
Current Diagnoses Pain in right knee (09/12/21) Radiculopathy, lumbar region (09/12/21) Physical Therapy Treatment Note PT-OP-A Visit Information Start: 08/22/21 09:46 Freq: Status: Active Protocol: Document 09/12/21 09:44 AMB (Rec: 09/12/21 10:37 AMB [id number]) Out-Patient Physical Therapy Visit Information Visit Information Visit Type Treatment Note Visit Start Time 09:45 Visit Stop Time 10:30 Total Visit Minutes 45 Visit Number 5 PT-OP-B Current Condition Start: 08/22/21 09:46 Freq: Status: Active Protocol: Document 08/22/21 09:46 AMB (Rec: 08/22/21 10:00 AMB [id number]) Current Condition History of Current Condition Onset Date June 2021 Current Complaints R knee/ proximal History of Current Condition The end of June hiking. R knee hyperextended while hiking- bouldering. Lots of walking afterwards and the knee has been sore ever since. Twisting the knee hurts. Feels like the knee is swollen . Was previously taking ibuprofen. Did go mountain biking yesterday and was sore but is ok. Usually walks 2 miles up hill and downhill, but hasn't been doing that as much. Does have a little bit of back history but feeling better since seeing the chiropractor beginning of June- was having bilateral pain going down the legs when waking up but that has also recently resolved. Stairs were a problem but now that is feeling better. Treatment Goals Patient/Caregiver Goals Be able to walk on uneven ground/up down hills without knee pain, be able to bend knee fully Personal Factors Other Personal Factors That May Effect hypothyroid, history of Therapy/Recovery bilateral leg pain associated with back pain that has seemingly resolved. PT-OP-C Subjective Start: 08/22/21 09:46 Freq: Status: Active Protocol: Document 09/12/21 09:44 AMB (Rec: 09/12/21 10:37 AMB [id number]) OP-PT Subjective Patient Comments Patient Comments Carlene continues to have stiffness in the knee but pain is getting better. PT-OP-J Posture/Palpation/Skin Start: 08/22/21 09:46 Freq: Status: Active Protocol: Document 08/22/21 09:45 AMB (Rec: 08/23/21 09:44 AMB [id number]) Skin Assessment Circumference Measurement 1 Location L knee Measurement (Centimeters) 130 knees Location R knee Measurement (Centimeters) 115 PT-OP-K Range of Motion Start: 08/22/21 09:46 Freq: Status: Active Protocol: Document 08/22/21 09:45 AMB (Rec: 08/23/21 09:34 AMB [id number]) Knee Goniometric Range of Motion Knee Right Flexion Active (degrees) 115 Extension Active (degrees) 7 Left Flexion Active (degrees) 130 Extension Active (degrees) 5 PT-OP-L Special Tests Start: 08/22/21 09:46 Freq: Status: Active Protocol: Document 08/22/21 09:45 AMB (Rec: 08/23/21 09:34 AMB [id number]) Special Tests Knee Special Tests Allen Test Test Results - Patellar Grind Test Test Results - Anterior Draw Test Results - Posterior Draw Test Results - PT-OP-M Strength Start: 08/22/21 09:46 Freq: Status: Active Protocol: Document 08/22/21 09:45 AMB (Rec: 08/23/21 09:34 AMB [id number]) Knee Strength Knee Manual Muscle Testing Right Flexion (S2) 4+ Good+ Extension (L3) 4+ Good+ Left Flexion (S2) 5 Normal Extension (L3) 5 Normal Ankle/Foot Strength Ankle and Foot Manual Muscle Testing Right Dorsiflexion (L4) 5 Normal Left Dorsiflexion (L4) 5 Normal PT-OP-Q Treatments Start: 08/22/21 09:46 Freq: Status: Active Protocol: Document 09/12/21 09:44 AMB (Rec: 09/12/21 10:37 AMB [id number]) Therapeutic Exercises Supine Exercises hamstring stretches Reps/Minutes 10 Standing Exercises 5 Standing Exercise Name fwd step ups Reps/Minutes 2x10 3 Standing Exercise Name squats Reps/Minutes partial- cued knee toe hip alignment Other Exercises quadruped LE ER Reps/Minutes 2x10 quadruped LE ext Reps/Minutes 2x10 gustavo pose Reps/Minutes 30x2 Manual Therapy Treatment Soft Tissue Mobilization 1 Body Location patellar tendon Joint Mobilizations 1 Joint tibiofemoral Direction PA Grade III Body Position Hooklying Comments into flexion PT-OP-T Assessment and Plan Start: 08/22/21 09:46 Freq: Status: Active Protocol: Document 09/12/21 09:44 AMB (Rec: 09/12/21 10:37 [facility] [id number]) Physical Therapy Assessment Goals Two Impairment pain Short Term Goal (STG) Carlene will walk 3 miles with elevation gain without LE pain. STG Duration 4 weeks Care Home Goal (LTG) Carlene will perform a full squat with good body mechanics without knee pain. LTG Duration 8 weeks One Impairment ROM Short Term Goal (STG) Carlene will increase her knee flexion to 130 degrees. STG Duration 4 weeks Assessment Summary Assessment Continues to be concerned about stiffness, but reassured that sx continue to progressively improve. Did have an audible pop of patella with manual therapy, did discuss patellar chondromalacia as a possibiltiy. Physical Therapy Plan Next Visit Focus/Plan Next Visit Plan HEP: lunges, forward and lateral
--- NOTE | 2021-09-14 11:05 | PT.OTN ---
Current Diagnoses Pain in right knee (09/14/21) Radiculopathy, lumbar region (09/14/21) Physical Therapy Treatment Note PT-OP-A Visit Information Start: 08/22/21 09:46 Freq: Status: Active Protocol: Document 09/14/21 10:00 AMB (Rec: 09/14/21 10:52 AMB [id number]) Out-Patient Physical Therapy Visit Information Visit Information Visit Type Treatment Note Visit Start Time 09:45 Visit Stop Time 10:30 Total Visit Minutes 45 Visit Number 6 PT-OP-B Current Condition Start: 08/22/21 09:46 Freq: Status: Active Protocol: Document 08/22/21 09:46 AMB (Rec: 08/22/21 10:00 AMB [id number]) Current Condition History of Current Condition Onset Date June 2021 Current Complaints R knee/ proximal History of Current Condition The end of June hiking. R knee hyperextended while hiking- bouldering. Lots of walking afterwards and the knee has been sore ever since. Twisting the knee hurts. Feels like the knee is swollen . Was previously taking ibuprofen. Did go mountain biking yesterday and was sore but is ok. Usually walks 2 miles up hill and downhill, but hasn't been doing that as much. Does have a little bit of back history but feeling better since seeing the chiropractor beginning of June- was having bilateral pain going down the legs when waking up but that has also recently resolved. Stairs were a problem but now that is feeling better. Treatment Goals Patient/Caregiver Goals Be able to walk on uneven ground/up down hills without knee pain, be able to bend knee fully Personal Factors Other Personal Factors That May Effect hypothyroid, history of Therapy/Recovery bilateral leg pain associated with back pain that has seemingly resolved. PT-OP-C Subjective Start: 08/22/21 09:46 Freq: Status: Active Protocol: Document 09/14/21 10:00 AMB (Rec: 09/14/21 10:52 AMB [id number]) OP-PT Subjective Patient Comments Patient Comments Carlene has stiffness in her knee, but is more conerned about bilateral ponce pain that she experience when walking with her neighbor yesterday when walking downhill. PT-OP-J Posture/Palpation/Skin Start: 08/22/21 09:46 Freq: Status: Active Protocol: Document 08/22/21 09:45 AMB (Rec: 08/23/21 09:44 AMB [id number]) Skin Assessment Circumference Measurement 1 Location L knee Measurement (Centimeters) 130 knees Location R knee Measurement (Centimeters) 115 PT-OP-K Range of Motion Start: 08/22/21 09:46 Freq: Status: Active Protocol: Document 08/22/21 09:45 AMB (Rec: 08/23/21 09:34 AMB [id number]) Knee Goniometric Range of Motion Knee Right Flexion Active (degrees) 115 Extension Active (degrees) 7 Left Flexion Active (degrees) 130 Extension Active (degrees) 5 PT-OP-L Special Tests Start: 08/22/21 09:46 Freq: Status: Active Protocol: Document 08/22/21 09:45 AMB (Rec: 08/23/21 09:34 AMB [id number]) Special Tests Knee Special Tests Allen Test Test Results - Patellar Grind Test Test Results - Anterior Draw Test Results - Posterior Draw Test Results - PT-OP-M Strength Start: 08/22/21 09:46 Freq: Status: Active Protocol: Document 08/22/21 09:45 AMB (Rec: 08/23/21 09:34 AMB [id number]) Knee Strength Knee Manual Muscle Testing Right Flexion (S2) 4+ Good+ Extension (L3) 4+ Good+ Left Flexion (S2) 5 Normal Extension (L3) 5 Normal Ankle/Foot Strength Ankle and Foot Manual Muscle Testing Right Dorsiflexion (L4) 5 Normal Left Dorsiflexion (L4) 5 Normal PT-OP-Q Treatments Start: 08/22/21 09:46 Freq: Status: Active Protocol: Document 09/14/21 09:45 AMB (Rec: 09/14/21 11:05 AMB [id number]) Therapeutic Exercises Sitting Exercises ankle t band Sitting Exercise Name inversion Resistance #3 t band Reps/Minutes 2x10 Manual Therapy Treatment Soft Tissue Mobilization 1 Body Location rolling over calf/gastroc- medial Comments rolling pin PT-OP-T Assessment and Plan Start: 08/22/21 09:46 Freq: Status: Active Protocol: Document 09/14/21 09:45 AMB (Rec: 09/14/21 11:05 AMB [id number]) Physical Therapy Assessment Goals Two Impairment pain Short Term Goal (STG) Carlene will walk 3 miles with elevation gain without LE pain. STG Duration 4 weeks Half-Way Goal (LTG) Carlene will perform a full squat with good body mechanics without knee pain. LTG Duration 8 weeks One Impairment ROM Short Term Goal (STG) Carlene will increase her knee flexion to 130 degrees. STG Duration 4 weeks Assessment Summary Assessment Carlene states she always feels better after PT. She is doing better with the knee, but is having more bilateral ponce pain which she was having prior to the knee injury. She is mostly having medial calf pain/weakness, not really over tib ant, more over medial gastroc and soleus. Physical Therapy Plan Next Visit Focus/Plan Next Note Type Treatment Note Next Visit Plan Follow up on lower leg pain
--- NOTE | 2021-09-19 15:52 | PT.OTN ---
Current Diagnoses Pain in right knee (09/19/21) Radiculopathy, lumbar region (09/19/21) Physical Therapy Treatment Note PT-OP-A Visit Information Start: 08/22/21 09:46 Freq: Status: Active Protocol: Document 09/19/21 09:45 AMB (Rec: 09/19/21 13:45 AMB [id number]) Out-Patient Physical Therapy Visit Information Visit Information Visit Type Treatment Note Visit Start Time 09:45 Visit Stop Time 10:30 Total Visit Minutes 45 Visit Number 7 PT-OP-B Current Condition Start: 08/22/21 09:46 Freq: Status: Active Protocol: Document 08/22/21 09:46 AMB (Rec: 08/22/21 10:00 AMB [id number]) Current Condition History of Current Condition Onset Date June 2021 Current Complaints R knee/ proximal History of Current Condition The end of June hiking. R knee hyperextended while hiking- bouldering. Lots of walking afterwards and the knee has been sore ever since. Twisting the knee hurts. Feels like the knee is swollen . Was previously taking ibuprofen. Did go mountain biking yesterday and was sore but is ok. Usually walks 2 miles up hill and downhill, but hasn't been doing that as much. Does have a little bit of back history but feeling better since seeing the chiropractor beginning of June- was having bilateral pain going down the legs when waking up but that has also recently resolved. Stairs were a problem but now that is feeling better. Treatment Goals Patient/Caregiver Goals Be able to walk on uneven ground/up down hills without knee pain, be able to bend knee fully Personal Factors Other Personal Factors That May Effect hypothyroid, history of Therapy/Recovery bilateral leg pain associated with back pain that has seemingly resolved. PT-OP-C Subjective Start: 08/22/21 09:46 Freq: Status: Active Protocol: Document 09/19/21 09:45 AMB (Rec: 09/19/21 13:45 AMB [id number]) OP-PT Subjective Patient Comments Patient Comments Carlene continues to have more bilateral lower leg pain, which is really what she was sent here for originally, the knee is getting better, but was really quite sore the moring after last visit. PT-OP-J Posture/Palpation/Skin Start: 08/22/21 09:46 Freq: Status: Active Protocol: Document 08/22/21 09:45 AMB (Rec: 08/23/21 09:44 AMB [id number]) Skin Assessment Circumference Measurement 1 Location L knee Measurement (Centimeters) 130 knees Location R knee Measurement (Centimeters) 115 PT-OP-K Range of Motion Start: 08/22/21 09:46 Freq: Status: Active Protocol: Document 08/22/21 09:45 AMB (Rec: 08/23/21 09:34 AMB [id number]) Knee Goniometric Range of Motion Knee Right Flexion Active (degrees) 115 Extension Active (degrees) 7 Left Flexion Active (degrees) 130 Extension Active (degrees) 5 PT-OP-L Special Tests Start: 08/22/21 09:46 Freq: Status: Active Protocol: Document 08/22/21 09:45 AMB (Rec: 08/23/21 09:34 AMB [id number]) Special Tests Knee Special Tests Allen Test Test Results - Patellar Grind Test Test Results - Anterior Draw Test Results - Posterior Draw Test Results - PT-OP-M Strength Start: 08/22/21 09:46 Freq: Status: Active Protocol: Document 08/22/21 09:45 AMB (Rec: 08/23/21 09:34 AMB [id number]) Knee Strength Knee Manual Muscle Testing Right Flexion (S2) 4+ Good+ Extension (L3) 4+ Good+ Left Flexion (S2) 5 Normal Extension (L3) 5 Normal Ankle/Foot Strength Ankle and Foot Manual Muscle Testing Right Dorsiflexion (L4) 5 Normal Left Dorsiflexion (L4) 5 Normal PT-OP-Q Treatments Start: 08/22/21 09:46 Freq: Status: Active Protocol: Document 09/21/21 15:34 AMB (Rec: 09/21/21 15:52 AMB [id number]) Therapeutic Exercises Prone Exercises 1 Prone Exercise Name prone press up Reps/Minutes 5x15 Comments on elbows Sitting Exercises sciatic n glide Reps/Minutes 2x10 Other Exercises quadruped LE ER Reps/Minutes 2x10 quadruped LE ext Reps/Minutes 2x10 gustavo pose Reps/Minutes 30x2 Manual Therapy Treatment Soft Tissue Mobilization 2 Body Location lumbar paraspinals Intensity/Depth Moderate Body Position Sidelying Joint Mobilizations 2 Joint lumbar PA Comments L2-L5 PT-OP-T Assessment and Plan Start: 08/22/21 09:46 Freq: Status: Active Protocol: Document 09/19/21 09:45 AMB (Rec: 09/20/21 17:00 AMB [id number]) Physical Therapy Assessment Goals Two Impairment pain Short Term Goal (STG) Carlene will walk 3 miles with elevation gain without LE pain. STG Duration 4 weeks Panelboard Tank Pumper Goal (LTG) Carlene will perform a full squat with good body mechanics without knee pain. LTG Duration 8 weeks One Impairment ROM Short Term Goal (STG) Carlene will increase her knee flexion to 130 degrees. STG Duration 4 weeks Assessment Summary Assessment Carlene is feeling like the knee is better, but is concerned about how her bilateral ponce pain was significantly more sore after last visit that focused on MFR to tib ant. Did work more on L4 today where pt does have some tenderness, and then progressed more core stability and will follow up next visit . Physical Therapy Plan Next Visit Focus/Plan Next Note Type Treatment Note Next Visit Plan Follow up on lower leg pain
--- NOTE | 2021-09-22 16:14 | PT.OTN ---
Current Diagnoses Pain in right knee (09/22/21) Radiculopathy, lumbar region (09/22/21) Physical Therapy Treatment Note PT-OP-A Visit Information Start: 08/22/21 09:46 Freq: Status: Active Protocol: Document 09/22/21 13:48 AMB (Rec: 09/22/21 14:31 AMB [id number]) Out-Patient Physical Therapy Visit Information Visit Information Visit Type Treatment Note Visit Start Time 13:45 Visit Stop Time 14:30 Total Visit Minutes 45 Visit Number 8 PT-OP-B Current Condition Start: 08/22/21 09:46 Freq: Status: Active Protocol: Document 08/22/21 09:46 AMB (Rec: 08/22/21 10:00 AMB [id number]) Current Condition History of Current Condition Onset Date June 2021 Current Complaints R knee/ proximal History of Current Condition The end of June hiking. R knee hyperextended while hiking- bouldering. Lots of walking afterwards and the knee has been sore ever since. Twisting the knee hurts. Feels like the knee is swollen . Was previously taking ibuprofen. Did go mountain biking yesterday and was sore but is ok. Usually walks 2 miles up hill and downhill, but hasn't been doing that as much. Does have a little bit of back history but feeling better since seeing the chiropractor beginning of June- was having bilateral pain going down the legs when waking up but that has also recently resolved. Stairs were a problem but now that is feeling better. Treatment Goals Patient/Caregiver Goals Be able to walk on uneven ground/up down hills without knee pain, be able to bend knee fully Personal Factors Other Personal Factors That May Effect hypothyroid, history of Therapy/Recovery bilateral leg pain associated with back pain that has seemingly resolved. PT-OP-C Subjective Start: 08/22/21 09:46 Freq: Status: Active Protocol: Document 09/22/21 13:48 AMB (Rec: 09/22/21 14:31 AMB [id number]) OP-PT Subjective Patient Comments Patient Comments Did go for a walk on Sunday, did go slow on the downill, but that went ok. PT-OP-J Posture/Palpation/Skin Start: 08/22/21 09:46 Freq: Status: Active Protocol: Document 08/22/21 09:45 AMB (Rec: 04/12/22 09:44 AMB [id number]) Skin Assessment Circumference Measurement 1 Location L knee Measurement (Centimeters) 130 knees Location R knee Measurement (Centimeters) 115 PT-OP-K Range of Motion Start: 08/22/21 09:46 Freq: Status: Active Protocol: Document 08/22/21 09:45 AMB (Rec: 08/23/21 09:34 AMB [id number]) Knee Goniometric Range of Motion Knee Right Flexion Active (degrees) 115 Extension Active (degrees) 7 Left Flexion Active (degrees) 130 Extension Active (degrees) 5 PT-OP-L Special Tests Start: 08/22/21 09:46 Freq: Status: Active Protocol: Document 08/22/21 09:45 AMB (Rec: 08/23/21 09:34 AMB [id number]) Special Tests Knee Special Tests Allen Test Test Results - Patellar Grind Test Test Results - Anterior Draw Test Results - Posterior Draw Test Results - PT-OP-M Strength Start: 08/22/21 09:46 Freq: Status: Active Protocol: Document 08/22/21 09:45 AMB (Rec: 08/23/21 09:34 AMB [id number]) Knee Strength Knee Manual Muscle Testing Right Flexion (S2) 4+ Good+ Extension (L3) 4+ Good+ Left Flexion (S2) 5 Normal Extension (L3) 5 Normal Ankle/Foot Strength Ankle and Foot Manual Muscle Testing Right Dorsiflexion (L4) 5 Normal Left Dorsiflexion (L4) 5 Normal PT-OP-Q Treatments Start: 08/22/21 09:46 Freq: Status: Active Protocol: Document 09/22/21 13:48 AMB (Rec: 09/22/21 14:31 AMB [id number]) Therapeutic Exercises Supine Exercises IT band stretch Reps/Minutes 30x2 bridge Reps/Minutes 2x10 hamstring stretches Reps/Minutes 10 SLR Reps/Minutes 10 Standing Exercises 4 Standing Exercise Name knee flexion stretch on stair 3 Standing Exercise Name squats Reps/Minutes partial- cued knee toe hip alignment Other Exercises quadruped LE ER Reps/Minutes 2x10 quadruped LE ext Reps/Minutes 2x10 gustavo pose Reps/Minutes 30x2 Manual Therapy Treatment Soft Tissue Mobilization 1 Body Location patella Mobilization Type Myofascial Release,Sustained Pressure PT-OP-T Assessment and Plan Start: 08/22/21 09:46 Freq: Status: Active Protocol: Document 09/22/21 13:48 AMB (Rec: 09/22/21 14:31 AMB [id number]) Physical Therapy Assessment Goals Two Impairment pain Short Term Goal (STG) Carlene will walk 3 miles with elevation gain without LE pain. STG Duration Progress made-walking downhilll hurts Informatica Developer Goal (LTG) Carlene will perform a full squat with good body mechanics without knee pain. LTG Duration Progress-knee pain with deep squat, but not partial One Impairment ROM Short Term Goal (STG) Carlene will increase her knee flexion to 130 degrees. STG Duration MET Assessment Summary Assessment Carlene is overall feeling better, feels like back and lower legs are better, medial knee can still be problematic with deep squat or with fast walking or walking downhill. Encouraged her in continued strengthening and to return to stretching for knees. ROM has improved quite well. Physical Therapy Plan Next Visit Focus/Plan Next Note Type Treatment Note Next Visit Plan Pt will be leaving the country for a few weeks after next visit.
--- NOTE | 2021-09-26 16:40 | PT.OTN ---
Current Diagnoses Pain in right knee (09/26/21) Radiculopathy, lumbar region (09/26/21) Physical Therapy Treatment Note PT-OP-A Visit Information Start: 08/22/21 09:46 Freq: Status: Active Protocol: Document 09/26/21 09:02 AMB (Rec: 09/26/21 09:46 AMB [id number]) Out-Patient Physical Therapy Visit Information Visit Information Visit Type Treatment Note Visit Start Time 09:00 Visit Stop Time 09:45 Total Visit Minutes 45 Visit Number 9 PT-OP-B Current Condition Start: 08/22/21 09:46 Freq: Status: Active Protocol: Document 08/22/21 09:46 AMB (Rec: 08/22/21 10:00 AMB [id number]) Current Condition History of Current Condition Onset Date June 2021 Current Complaints R knee/ proximal History of Current Condition The end of June hiking. R knee hyperextended while hiking- bouldering. Lots of walking afterwards and the knee has been sore ever since. Twisting the knee hurts. Feels like the knee is swollen . Was previously taking ibuprofen. Did go mountain biking yesterday and was sore but is ok. Usually walks 2 miles up hill and downhill, but hasn't been doing that as much. Does have a little bit of back history but feeling better since seeing the chiropractor beginning of June- was having bilateral pain going down the legs when waking up but that has also recently resolved. Stairs were a problem but now that is feeling better. Treatment Goals Patient/Caregiver Goals Be able to walk on uneven ground/up down hills without knee pain, be able to bend knee fully Personal Factors Other Personal Factors That May Effect hypothyroid, history of Therapy/Recovery bilateral leg pain associated with back pain that has seemingly resolved. PT-OP-C Subjective Start: 08/22/21 09:46 Freq: Status: Active Protocol: Document 09/26/21 09:02 AMB (Rec: 09/26/21 09:46 AMB [id number]) OP-PT Subjective Patient Comments Patient Comments Pt is not noticing pain in the knee, but it is still tight. PT-OP-J Posture/Palpation/Skin Start: 08/22/21 09:46 Freq: Status: Active Protocol: Document 08/22/21 09:45 AMB (Rec: 08/23/21 09:44 AMB [id number]) Skin Assessment Circumference Measurement 1 Location L knee Measurement (Centimeters) 130 knees Location R knee Measurement (Centimeters) 115 PT-OP-K Range of Motion Start: 08/22/21 09:46 Freq: Status: Active Protocol: Document 08/22/21 09:45 AMB (Rec: 08/23/21 09:34 AMB [id number]) Knee Goniometric Range of Motion Knee Right Flexion Active (degrees) 115 Extension Active (degrees) 7 Left Flexion Active (degrees) 130 Extension Active (degrees) 5 PT-OP-L Special Tests Start: 08/22/21 09:46 Freq: Status: Active Protocol: Document 08/22/21 09:45 AMB (Rec: 08/23/21 09:34 AMB [id number]) Special Tests Knee Special Tests Allen Test Test Results - Patellar Grind Test Test Results - Anterior Draw Test Results - Posterior Draw Test Results - PT-OP-M Strength Start: 08/22/21 09:46 Freq: Status: Active Protocol: Document 08/22/21 09:45 AMB (Rec: 08/23/21 09:34 AMB [id number]) Knee Strength Knee Manual Muscle Testing Right Flexion (S2) 4+ Good+ Extension (L3) 4+ Good+ Left Flexion (S2) 5 Normal Extension (L3) 5 Normal Ankle/Foot Strength Ankle and Foot Manual Muscle Testing Right Dorsiflexion (L4) 5 Normal Left Dorsiflexion (L4) 5 Normal PT-OP-Q Treatments Start: 08/22/21 09:46 Freq: Status: Active Protocol: Document 09/26/21 09:00 AMB (Rec: 09/26/21 16:39 AMB [id number]) Therapeutic Exercises Sidelying Exercises 1 Sidelying Exercise Name hip abduction Reps/Minutes 2x10 Comments cues for alignment Standing Exercises 3 Standing Exercise Name squats Reps/Minutes partial- cued knee toe hip alignment 2 Standing Exercise Name hamstring stretches on stairs Reps/Minutes 30x2 1 Standing Exercise Name forward lunges Reps/Minutes 2x10 Other Exercises quadruped LE ER Reps/Minutes 2x10 quadruped LE ext Reps/Minutes 2x10 PT-OP-T Assessment and Plan Start: 08/22/21 09:46 Freq: Status: Active Protocol: Document 09/26/21 09:02 AMB (Rec: 09/26/21 09:46 [facility] [id number]) Physical Therapy Assessment Goals Two Impairment pain Short Term Goal (STG) Carlene will walk 3 miles with elevation gain without LE pain. STG Duration Progress made-walking downhilll hurts Home Delivery Driver Goal (LTG) Carlene will perform a full squat with good body mechanics without knee pain. LTG Duration Progress-knee pain with deep squat, but not partial One Impairment ROM Short Term Goal (STG) Carlene will increase her knee flexion to 130 degrees. STG Duration MET Assessment Summary Assessment Carlene is overall feeling better, can still feel tightness down the backs of her legs, but the pain is a lot better.
--- NOTE | 2021-10-21 11:23 | PT.OPDS ---
Current Diagnoses Pain in right knee (09/26/21) Radiculopathy, lumbar region (09/26/21) Visit Care Team Role Provider Type Joelle Keita DO Attending Provider Physician Family Provider Primary Care Provider Referring Provider Specialty: Family Practice Address: [address] [place] [address], [facility], [address] Email: [email or web address] Visit Number Visit Number 9 Discharge Summary PT-OP-B Current Condition Start: 08/22/21 09:46 Freq: Status: Active Protocol: Document 08/22/21 09:46 AMB (Rec: 08/22/21 10:00 AMB [id number]) Current Condition History of Current Condition Onset Date June 2021 Current Complaints R knee/ proximal History of Current Condition The end of June hiking. R knee hyperextended while hiking- bouldering. Lots of walking afterwards and the knee has been sore ever since. Twisting the knee hurts. Feels like the knee is swollen . Was previously taking ibuprofen. Did go mountain biking yesterday and was sore but is ok. Usually walks 2 miles up hill and downhill, but hasn't been doing that as much. Does have a little bit of back history but feeling better since seeing the chiropractor beginning of June- was having bilateral pain going down the legs when waking up but that has also recently resolved. Stairs were a problem but now that is feeling better. Treatment Goals Patient/Caregiver Goals Be able to walk on uneven ground/up down hills without knee pain, be able to bend knee fully Personal Factors Other Personal Factors That May Effect hypothyroid, history of Therapy/Recovery bilateral leg pain associated with back pain that has seemingly resolved. PT-OP-C Subjective Start: 08/22/21 09:46 Freq: Status: Active Protocol: Document 09/26/21 09:02 AMB (Rec: 09/26/21 09:46 AMB [id number]) OP-PT Subjective Patient Comments Patient Comments Pt is not noticing pain in the knee, but it is still tight. PT-OP-J Posture/Palpation/Skin Start: 08/22/21 09:46 Freq: Status: Active Protocol: Document 08/22/21 09:45 AMB (Rec: 08/23/21 09:44 AMB [id number]) Skin Assessment Circumference Measurement 1 Location L knee Measurement (Centimeters) 130 knees Location R knee Measurement (Centimeters) 115 PT-OP-K Range of Motion Start: 08/22/21 09:46 Freq: Status: Active Protocol: Document 08/22/21 09:45 AMB (Rec: 08/23/21 09:34 AMB [id number]) Knee Goniometric Range of Motion Knee Right Flexion Active (degrees) 115 Extension Active (degrees) 7 Left Flexion Active (degrees) 130 Extension Active (degrees) 5 PT-OP-L Special Tests Start: 08/22/21 09:46 Freq: Status: Active Protocol: Document 08/22/21 09:45 AMB (Rec: 08/23/21 09:34 AMB [id number]) Special Tests Knee Special Tests Allen Test Test Results - Patellar Grind Test Test Results - Anterior Draw Test Results - Posterior Draw Test Results - PT-OP-M Strength Start: 08/22/21 09:46 Freq: Status: Active Protocol: Document 08/22/21 09:45 AMB (Rec: 08/23/21 09:34 AMB [id number]) Knee Strength Knee Manual Muscle Testing Right Flexion (S2) 4+ Good+ Extension (L3) 4+ Good+ Left Flexion (S2) 5 Normal Extension (L3) 5 Normal Ankle/Foot Strength Ankle and Foot Manual Muscle Testing Right Dorsiflexion (L4) 5 Normal Left Dorsiflexion (L4) 5 Normal PT-OP-T Assessment and Plan Start: 08/22/21 09:46 Freq: Status: Active Protocol: Document 10/21/21 11:22 AMB (Rec: 10/21/21 11:23 AMB [id number]) Physical Therapy Assessment Goals Two Impairment pain Short Term Goal (STG) Carlene will walk 3 miles with elevation gain without LE pain. STG Duration Progress made-walking downhilll hurts Institution Librarian Goal (LTG) Carlene will perform a full squat with good body mechanics without knee pain. LTG Duration Progress-knee pain with deep squat, but not partial One Impairment ROM Short Term Goal (STG) Carlene will increase her knee flexion to 130 degrees. STG Duration MET Assessment Summary Assessment At her last visit, Carlene had met the majority of her goals and was feeling better, although continued to have some tightness. Scheduled more visits after her trip to [place], Pt has since returned and called the clinic to state that her sx have since resolved and she no longer needs PT.
== END 2021-10-24 13:39 ==
LOC: PHYS 09:00
PROVIDERS: Family Provider Family Medicine; PCP Family Medicine; Referring Provider Family Medicine; Visit Provider Family Medicine
DX: M54.16 Radiculopathy, lumbar region (principal); M25.561 Pain in right knee
CPT/HCPCS: 97110; 97140; 97161

== ENCOUNTER → 2022-02-27 10:31 | Outpatient (CLI) | payer BC, SELFPAY ==
--- NOTE | 2022-02-27 10:33 | DI.RAD.S_ITS ---
PROCEDURE: XR TIBIA FUBULA RT 2V INDICATIONS: six months of tibia pain TECHNIQUE: 2 views of the tibia and fibula were acquired. COMPARISON: None. FINDINGS: Bones: No fractures or dislocations. No suspicious bony lesions. Soft tissues: No suspicious soft tissue calcifications or masses. IMPRESSION: No tibial or pretibial lesion identified. Dictated by: Finn Strickland M.D. on 02/27/2022 at 15:51 Approved by: Finn Strickland M.D. on 02/27/2022 at 15:52
--- NOTE | 2022-02-27 10:33 | DI.RAD.S_ITS ---
PROCEDURE: XR TIBIA FIBULA LT 2V INDICATIONS: six months of tibia pain TECHNIQUE: 2 views of the tibia and fibula were acquired. COMPARISON: None. FINDINGS: Bones: No fractures or dislocations. No suspicious bony lesions. Soft tissues: No suspicious soft tissue calcifications or masses. IMPRESSION: No tibial or pretibial abnormality identified. Dictated by: Finn Strickland M.D. on 02/27/2022 at 15:52 Approved by: Finn Strickland M.D. on 02/27/2022 at 15:52
[2022-02-27 11:59] LABS: Add Manual Diff / Slide Review NO; Basophils Absolute Auto 0 /uL (0-100); Basophils Percent Auto 0.7 % (0-2); Eosinophils Absolute Auto 100 /uL (0-450); Hematocrit 39.8 % (36-46); Hemoglobin 13.3 g/dL (12.0-16.0); Lymphocytes Absolute Auto 2000 /uL (1100-4500); Lymphocytes Percent Auto 28.8 % (25-40); Mean Corpuscular HGB Conc 33.4 % (30-36); Mean Corpuscular Hemoglobin 28.7 PG (26-34); Mean Corpuscular Volume 85.9 fL (80-100); Monocytes Absolute Auto 600 /uL (0-900); Monocytes Percent Auto 9.1 % (3-14); Neutrophils Absolute Auto 4100 /uL (1500-7000); Neutrophils Percent Auto 59.4 % (50-75); Platelet Count 322 X10^3/uL (150-400); Red Blood Cell Count 4.63 X10^6/uL (4.0-5.2); Red Cell Distribution Width 14.2 % (11.6-14.8); White Blood Cell Count 6.9 X10^3/uL (4.5-11.0)
[2022-02-27 12:33] LABS: Alanine Aminotransferase 14 IU/L (<35); Albumin 4.1 g/dL (3.5-5.0); Albumin Globulin Ratio 1.4 (1.0-2.8); Alkaline Phosphatase 57 U/L (38-126); Aspartate Aminotransferase 25 IU/L (14-36); BUN Creatinine Ratio 18.2 (6-22); Bilirubin Total 0.4 mg/dL (0.2-1.3); Blood Urea Nitrogen 12 mg/dL (7-17); Calcium 8.6 mg/dL (8.4-10.2); Carbon Dioxide 27 mmol/L (22-32); Chloride 101 mmol/L (98-107); Creatine Kinase 125 U/L (30-135); Estimated Glomerular Filt Rate > 60 mL/min (>60); Glucose 102 mg/dL (70-100); HEMOLYSIS < 15 (0-50); Sodium 138 mmol/L (137-145); Total Protein 7.1 g/dL (6.3-8.2)
== END ==
PROVIDERS: Family Provider Family Medicine; PCP Family Medicine; Referring Provider Family Medicine; Visit Provider Family Medicine
DX: M89.8X6 Other specified disorders of bone, lower leg (principal); M79.10 Myalgia, unspecified site
CPT/HCPCS: 36415; 73590; 80053; 82550; 85025

== ENCOUNTER → 2022-03-01 19:47 | Outpatient (CLI) | payer BC, SELFPAY ==
--- NOTE | 2022-03-01 19:48 | DI.MRI.S_ITS ---
PROCEDURE: MR LUMBAR SPINE WO CON INDICATIONS: bilteral lower extremity aching/soreness, ruleout radiculopa TECHNIQUE: Noncontrast sagittal T1 spin echo and T2 fast echo, sagittal STIR, and T2 fast spin echo through the lumbar spine. In cases with scoliosis, additional coronal T2 fast spin echo may be performed. COMPARISON: None. FINDINGS: Image quality: Excellent. Alignment and Curvature: There is trace retrolisthesis of L2 on L3, 4 mm retrolisthesis of L4 on L5 in 6 mm retrolisthesis of L5 on S1. Bone Marrow: Marrow is of normal overall signal. Mild reactive endplate changes are present at L4-5. There is a focus of rounded increased T2 signal within the L5 vertebral body. This is suspected to be related to a prominent Schmorl's nodes which are prominent along both the superior and inferior endplates. No acute vertebral body compression fractures. Spinal Cord: Conus medullaris terminates at the L1 level. Visualized cord demonstrates normal signal and size. Paraspinous Soft Tissues: No paravertebral masses. Discs: Moderate to severe multilevel disc desiccation is present most severe at L5-S1. L1-L2: No disc bulge, spinal stenosis or foraminal narrowing. Minimal ligamentum flavum hypertrophy. L2-L3: Minimal disc bulge without spinal stenosis. No foraminal narrowing. L3-L4: Minimal disc bulge without spinal stenosis. Minimal left foraminal narrowing. Facet and ligamentum flavum hypertrophy are present. L4-L5: Mild disc bulge with [id number] spinal stenosis. Moderate to severe left and moderate right foraminal narrowing with prominent facet and ligamentum flavum hypertrophy. L5-S1: Mild disc bulge without spinal stenosis. Severe left and moderate to severe right foraminal narrowing with mild flattening of the exiting left L5 nerve roots. Facet and ligamentum flavum hypertrophy are present. IMPRESSION: Degenerative changes most notable at L4-5 and L5-S1 demonstrating disc bulges as well as qusb-ne-snrofrti spinal stenosis at L4-5. Foraminal narrowing is most severe at L5-S1 predominantly secondary to facet/ligamentum flavum arthropathy as well as retrolisthesis. Dictated by: Qiana Kraus M.D. on 03/02/2022 at 6:53 Approved by: Qiana Kraus M.D. on 03/02/2022 at 6:58
== END ==
PROVIDERS: Family Provider Family Medicine; PCP Family Medicine; Referring Provider Family Medicine; Visit Provider Family Medicine
DX: M51.16 Intervertebral disc disorders with radiculopathy, lumbar region (principal); M51.17 Intervertebral disc disorders with radiculopathy, lumbosacral region; M48.061 Spinal stenosis, lumbar region without neurogenic claudication; M48.07 Spinal stenosis, lumbosacral region
CPT/HCPCS: 72148

== ENCOUNTER → 2022-05-17 07:43 | Outpatient (CLI) | payer BC, SELFPAY ==
--- NOTE | 2022-05-17 | DI.MG.S_ITS ---
BILATERAL DIGITAL SCREENING MAMMOGRAM 3D/2D WITH CAD: 05/17/2022 CLINICAL: Routine screening. Comparison is made to exams dated: 04/15/2021 mammogram, 04/05/2020 mammogram, and 04/01/2019 mammogram - [facility]. Both breasts are heterogeneously dense, which may obscure small masses (category c / 51-75% glandular tissue). Current study was also evaluated with a Computer Aided Detection (CAD) system. No significant masses, calcifications, or other findings are seen in either breast. There has been no significant interval change. IMPRESSION: NEGATIVE There is no mammographic evidence of malignancy. A 1 year screening mammogram is recommended. Based on Tyrer-Cuzick model (a risk assessment model), the patient's lifetime risk is 25.0% and her 10 year risk is 5.3%. If a patient has an elevated risk, a more comprehensive evaluation should be considered and/or a referral to a genetic counselor. The [place] [employer], [place] [employer], and NCCN Guidelines advise the consideration of Breast MRI as an adjunct to screening mammography in patients whose Lifetime risk to develop breast cancer is 20% or higher. This exam was interpreted at Station ID: [id number]. NOTE: For mammograms, a report in lay terms will be sent to the patient. Approximately 15% of breast malignancies will not be visualized mammographically. In the management of a palpable breast mass, a negative mammogram must not discourage biopsy of a clinically suspicious lesion. Electronically Signed By: Babak mosqueda/bret:05/17/2022 09:01:04 letter sent: Normal Exam ACR BI-RADS Category 1: Negative 3341F
== END ==
PROVIDERS: Family Provider Family Medicine; PCP Family Medicine; Referring Provider Family Medicine; Visit Provider Family Medicine
DX: Z12.31 Encounter for screening mammogram for malignant neoplasm of breast (principal)
CPT/HCPCS: 77063; 77067

== ENCOUNTER → 2023-02-06 08:04 | Outpatient (CLI) | payer BC, SELFPAY ==
[2023-02-06 10:01] LABS: Cholesterol 175 mg/dL (140-199); HDL Cholesterol 57 mg/dL (40-60); LDL Cholesterol Calculated 105 mg/dL (<100); Triglycerides 63 mg/dL (35-150)
[2023-02-06 10:13] LABS: Vitamin D 25 Hydroxy (D3) 21.2 ng/mL (30.0-100.0)
[2023-02-06 10:27] LABS: TSH w/ Reflex to FT4 1.76 uIU/mL (0.47-4.68)
[2023-02-07 10:09] LABS: Fecal Immunochemical Test Negative (Negative)
== END ==
PROVIDERS: Family Provider Family Medicine; PCP Student in an Organized Health Care Education/Training Program; Referring Provider Student in an Organized Health Care Education/Training Program; Visit Provider Student in an Organized Health Care Education/Training Program
DX: Z12.11 Encounter for screening for malignant neoplasm of colon (principal); R53.83 Other fatigue; Z13.9 Encounter for screening, unspecified; E03.9 Hypothyroidism, unspecified
CPT/HCPCS: 36415; 80061; 82274; 82306; 84443

== ENCOUNTER → 2023-06-20 08:02 | Outpatient (CLI) | payer BC, SELFPAY ==
--- NOTE | 2023-06-20 | DI.MG.S_ITS ---
BILATERAL DIGITAL SCREENING MAMMOGRAM 3D/2D WITH CAD: 06/20/2023 CLINICAL: Routine screening. Family history of breast cancer. Comparison is made to exams dated: 05/17/2022 mammogram, 04/05/2020 mammogram, and 04/15/2021 mammogram - [facility]. Both breasts are heterogeneously dense, which may obscure small masses (category c / 51-75% glandular tissue). Current study was also evaluated with a Computer Aided Detection (CAD) system. No significant masses, calcifications, or other findings are seen in either breast. There has been no significant interval change. IMPRESSION: NEGATIVE There is no mammographic evidence of malignancy. A 1 year screening mammogram is recommended. Based on Tyrer-Cuzick model (a risk assessment model), the patient's lifetime risk is 25.1% and her 10 year risk is 5.6%. If a patient has an elevated risk, a more comprehensive evaluation should be considered and/or a referral to a genetic counselor. The [place] [employer], [place] [employer], and NCCN Guidelines advise the consideration of Breast MRI as an adjunct to screening mammography in patients whose Lifetime risk to develop breast cancer is 20% or higher. This exam was interpreted at Station ID: [id number]. NOTE: For mammograms, a report in lay terms will be sent to the patient. Approximately 15% of breast malignancies will not be visualized mammographically. In the management of a palpable breast mass, a negative mammogram must not discourage biopsy of a clinically suspicious lesion. Electronically Signed By: Christine montalvo/bret:06/20/2023 08:55:35 letter sent: Normal Exam ACR BI-RADS Category 1: Negative 3341F
== END ==
LOC: MAMMO 08:03
PROVIDERS: Family Provider Family Medicine; PCP Student in an Organized Health Care Education/Training Program; Referring Provider Student in an Organized Health Care Education/Training Program; Visit Provider Student in an Organized Health Care Education/Training Program
DX: Z12.31 Encounter for screening mammogram for malignant neoplasm of breast (principal); R92.30 Dense breasts, unspecified
CPT/HCPCS: 77063; 77067

== ENCOUNTER → 2023-07-19 10:47 | Outpatient (CLI) | payer BC, SELFPAY ==
--- NOTE | 2023-07-19 10:48 | DI.MRI.S_ITS ---
BREAST MRI OF THE RIGHT BREAST: 07/19/2023 CLINICAL: High risk screening. TECHNIQUE: The patient was placed prone in a dedicated breast imaging coil. Precontrast axial STIR and 3D FLASH without fat saturation sequences were obtained. Both before and after bolus injection of contrast, sequential 1-minute axial 3D FLASH with fat saturation sequences for 3 time points, with subtraction images and maximum intensity projections (MIP's) generated. Delayed sagittal FLASH images with fat saturation were also obtained. Computer-aided detection, including computer algorithm analysis of MRI image data for lesion detection and characterization, pharmacokinetic analysis, with further physician review for interpretation, was performed. COMPARISON: mammograms dated 06/20/2023 and 05/17/2022 Image quality: Excellent. There is mild-moderate background parenchymal enhancement. Heterogeneously dense fibroglandular tissue in the bilateral breast. Right breast: No suspicious mass, non-mass enhancement, or architectural distortion. No skin or nipple abnormalities. No axillary or internal mammary chain adenopathy. Left breast: No suspicious mass, non-mass enhancement, or architectural distortion. No skin or nipple abnormalities. No axillary or internal mammary chain adenopathy. Miscellaneous: Visualized portions of the upper abdomen and chest appear unremarkable. IMPRESSION: NEGATIVE 1. No MRI evidence for malignancy in the right breast. 2. No MRI evidence for malignancy in the left breast. Recommend continued annual screening mammography and consideration for continued adjunct annual screening breast MRI. COMMENT: The imaging literature indicates that a negative contrast breast MRI examination has a high sensitivity and a moderate specificity for detecting and excluding invasive carcinomas to a detection threshold of 3-5 mm; nonetheless, appropriate clinical and mammographic follow-up are recommended. MRI is not sensitive for detecting DCIS (ductal carcinoma in situ) and may not detect large invasive neoplasms that show only minimal enhancement such as mucinous carcinoma. If there are suspicious calcifications or clinically worrisome palpable masses, then biopsy should still be considered. Invasive neoplasms can be hidden by co-existent and benign enhancement caused by mastitis, hormone therapy effects, radiation therapy, , and recent biopsy or surgery. False positive examinations can occur in a number of circumstances, including breasts that have recently been subject to invasive procedures and those that contain atypical ductal hyperplasia, hormonally stimulated glandular tissue, fat necrosis, or radial scars. Future imaging is recommended as follows: 06/20/2024 screening mammogram. This exam was interpreted at Station ID: [id number]. Electronically Signed By: Ariel Escalona M.D. aty/:07/19/2023 17:30:43 ACR BI-RADS Category 1: Negative 3341F
== END ==
PROVIDERS: Family Provider Family Medicine; PCP Student in an Organized Health Care Education/Training Program; Referring Provider Student in an Organized Health Care Education/Training Program; Visit Provider Student in an Organized Health Care Education/Training Program
DX: Z12.39 Encounter for other screening for malignant neoplasm of breast (principal); R92.333 Mammographic heterogeneous density, bilateral breasts; Z91.89 Other specified personal risk factors, not elsewhere classified
CPT/HCPCS: 77049; A9579

== ENCOUNTER → 2024-02-07 11:16 | Outpatient (CLI) | payer BC, SELFPAY ==
[2024-02-07 15:51] LABS: Iron 95 ug/dL (37-170)
[2024-02-07 16:31] LABS: Thyroid Stimulating Hormone 2.17 uIU/mL (0.47-4.68)
[2024-02-07 16:36] LABS: Ferritin 8 ng/mL (6-137)
== END ==
PROVIDERS: Family Provider Family Medicine; PCP Student in an Organized Health Care Education/Training Program; Referring Provider Student in an Organized Health Care Education/Training Program; Visit Provider Student in an Organized Health Care Education/Training Program
DX: E03.9 Hypothyroidism, unspecified (principal); R53.83 Other fatigue; E55.9 Vitamin D deficiency, unspecified
CPT/HCPCS: 36415; 82306; 82728; 83540; 84443

== ENCOUNTER → 2024-03-25 08:01 | Outpatient (CLI) | payer BC, SELFPAY ==
[2024-03-25 09:30] LABS: Add Manual Diff / Slide Review NO; Basophils Absolute Auto 0 /uL (0-100); Basophils Percent Auto 0.5 % (0-2); Eosinophils Absolute Auto 300 /uL (0-450); Eosinophils Percent Auto 4.6 % (2-4); Hematocrit 43.1 % (36-46); Hemoglobin 14.3 g/dL (12.0-16.0); Lymphocytes Absolute Auto 1900 /uL (1100-4500); Lymphocytes Percent Auto 31.4 % (25-40); Mean Corpuscular HGB Conc 33.3 % (30-36); Mean Corpuscular Hemoglobin 28.6 PG (26-34); Mean Corpuscular Volume 86.1 fL (80-100); Monocytes Absolute Auto 500 /uL (0-900); Monocytes Percent Auto 8.3 % (3-14); Neutrophils Absolute Auto 3300 /uL (1500-7000); Neutrophils Percent Auto 55.2 % (50-75); Platelet Count 313 X10^3/uL (150-400); Red Cell Distribution Width 15.7 % (11.6-14.8)
[2024-03-25 10:02] LABS: HEMOLYSIS < 15 (0-50); Iron 143 ug/dL (37-170)
[2024-03-25 10:12] LABS: Percent Iron Saturation 54 % (15-50); Total Iron Binding Capacity 266 ug/dL (265-497); Transferrin 208 mg/dL (206-381)
[2024-03-25 10:37] LABS: Ferritin 51 ng/mL (6-137)
== END ==
PROVIDERS: Family Provider Family Medicine; PCP Student in an Organized Health Care Education/Training Program; Referring Provider Student in an Organized Health Care Education/Training Program; Visit Provider Student in an Organized Health Care Education/Training Program
DX: D50.9 Iron deficiency anemia, unspecified (principal)
CPT/HCPCS: 36415; 82728; 83540; 83550; 85025

== ENCOUNTER → 2024-07-08 09:10 | Outpatient (CLI) | payer BC, SELFPAY ==
--- NOTE | 2024-07-08 09:11 | DI.MG.S_ITS ---
BILATERAL DIGITAL SCREENING MAMMOGRAM 3D/2D WITH CAD: 07/08/2024 CLINICAL: Routine screening. Family history of breast cancer. Comparison is made to exams dated: 06/20/2023 mammogram, 05/17/2022 mammogram, 04/05/2020 mammogram, and 04/15/2021 mammogram - [facility]. The breasts are heterogeneously dense, which may obscure small masses (category c / 51-75% glandular tissue). Current study was also evaluated with a Computer Aided Detection (CAD) system. No significant masses, calcifications, or other findings are seen in either breast. There has been no significant interval change. IMPRESSION: NEGATIVE There is no mammographic evidence of malignancy. A 1 year screening mammogram is recommended. Based on Tyrer-Cuzick model (a risk assessment model), the patient's lifetime risk is 25.2% and her 10 year risk is 5.9%. If a patient has an elevated risk, a more comprehensive evaluation should be considered and/or a referral to a genetic counselor. The [place] [employer], [employer] [employer], and NCCN Guidelines advise the consideration of Breast MRI as an adjunct to screening mammography in patients whose Lifetime risk to develop breast cancer is 20% or higher. This exam was interpreted at Station ID: [id number]. NOTE: For mammograms, a report in lay terms will be sent to the patient. Approximately 15% of breast malignancies will not be visualized mammographically. In the management of a palpable breast mass, a negative mammogram must not discourage biopsy of a clinically suspicious lesion. Electronically Signed By: Jens [email or web address]:07/08/2024 15:35:00 letter sent: Normal Exam ACR BI-RADS Category 1: Negative
== END ==
PROVIDERS: Family Provider Family Medicine; PCP Student in an Organized Health Care Education/Training Program; Referring Provider Student in an Organized Health Care Education/Training Program; Visit Provider Student in an Organized Health Care Education/Training Program
DX: Z12.31 Encounter for screening mammogram for malignant neoplasm of breast (principal); Z80.3 Family history of malignant neoplasm of breast; R92.333 Mammographic heterogeneous density, bilateral breasts
CPT/HCPCS: 77063; 77067